=== PATIENT | male | born 1985 | race Caucasian/White ===

== ENCOUNTER 2021-11-25 12:56 | Emergency (ER) | payer OTHER | END 2021-11-25 16:18 | disposition left against medical advice (07) | LOC: ER1 12:56 | DX: Z03.89 Encounter for observation for other suspected diseases and conditions ruled out (principal); Z86.59 Personal history of other mental and behavioral disorders; F17.290 Nicotine dependence, other tobacco product, uncomplicated | CPT/HCPCS: 99283 ==